=== PATIENT | female | born 1960 | race African-American/Black ===

== ENCOUNTER → 2016-12-06 | Outpatient (CLI) | payer OTHER ==
--- NOTE | 2016-12-06 08:48 | WOMENS IMAGING REPORT ---
EXAM DESCRIPTION: BILAT SCREENING MAMMO W/CAD COMPLETED DATE/TIME: 12/06/2016 8:28 am REASON FOR STUDY: SCREENING MAMMO Z12.31 ENCNTR SCREEN MAMMOGRAM FOR MALIGNANT NEOPLASM OF DMITRI COMPARISON: Multiple since 2008 TECHNIQUE: Standard craniocaudal and mediolateral oblique views of each breast recorded using digita l acquisition. LIMITATIONS: None. FINDINGS: Findings present which are benign by mammographic criteria. No suspicious masses, calcifi cations or architectural distortion. Pertinent benign findings: Benign 1.5 cm fibroadenoma medial right breast. Benign 6 mm nodule medial left breast. Read with the assistance of CAD. .[facility] - R2 Cenova Version 1.3 .[facility] Imaging - R2 Cenova Version 1.3 .[facility] Imaging - R2 Cenova Version 2.4 .[facility] - R2 Cenova Version 2.4 .[facility] - R2 Nuclear Plant Instrument Technician Version 9.2 Benign mammographic findings may include one or more of the following: Smooth masses, popcorn/rim/co arse calcifications, asymmetries, post-procedure changes, and lesions with long-standing stability. IMPRESSION: BENIGN MAMMOGRAPHIC FINDINGS. BIRADS 2 BREAST DENSITY: b. There are scattered areas of fibroglandular density. BIRAD: 2 BENIGN FINDING(S) RECOMMENDATION: ROUTINE SCREENING Please continue bilateral screening mammography in November 2017. Consider bilateral screening tomosyn thesis. COMMENT: The patient has been notified of the results by letter per SA requirements. Additional no tification policies are in place for contacting patient with suspicious or incomplete findings. Quality ID #[id number]: [employer] recommends an annual screening mammogram for women aged 40 years or over. This facility utilizes a reminder system to ensure that all patients receive reminder letters, and/or direct phone calls for appointments. This includes reminders for routine scr eening mammograms, diagnostic mammograms, or other Breast Imaging Interventions when appropriate. Th is patient will be placed in the appropriate reminder system. The [employer] (ACR) has developed recommendations for screening MRI of the breast s in certain patient populations, to be used in conjunction with mammography. Breast MRI surveillanc e may be appropriate for women with more than 20% lifetime risk of developing breast cancer as deter mined by genetic testing, significant family history of the disease, or history of mantle radiation f or Hodgkins Disease. ACR Practice Guidelines 2008. TECHNICAL DOCUMENTATION: FINDING NUMBER: (1) ASSESSMENT: (1) JOB ID: [id number] [employer]- All Rights Reserved
== END ==
LOC: WI 07:52
PROVIDERS: ATTEND Family Medicine
DX: Z12.31 Encounter for screening mammogram for malignant neoplasm of breast (principal)
CPT/HCPCS: 77067; G0202

== ENCOUNTER 2017-08-05 05:52 | Emergency (ER) | payer OTHER ==
[2017-08-05] MEDS ORDERED: NORMAL SALINE 1000 ML 1,000 ML IV ONE (07:46)
--- NOTE | 2017-08-05 08:16 | RADIOLOGY REPORT (SQ) ---
EXAM DESCRIPTION: CHEST 2 VIEWS COMPLETED DATE/TIME: 08/05/2017 7:57 am REASON FOR STUDY: cough COMPARISON: None. EXAM PARAMETERS: NUMBER OF VIEWS: two views TECHNIQUE: Digital Frontal and Lateral radiographic views of the chest acquired. RADIATION DOSE: NA LIMITATIONS: none FINDINGS: LUNGS AND PLEURA: No opacities, masses or pneumothorax. No pleural effusion. MEDIASTINUM AND HILAR STRUCTURES: No masses or contour abnormalities. HEART AND VASCULAR STRUCTURES: Heart normal size. No evidence for failure. BONES: No acute findings. HARDWARE: None in the chest. OTHER: No other significant finding. IMPRESSION: NO ACUTE RADIOGRAPHIC FINDING IN THE CHEST. TECHNICAL DOCUMENTATION: JOB ID: [id number] [employer]- All Rights Reserved Reading location - IP/workstation name: [email or web address]
--- NOTE | 2017-08-05 08:23 | ER Document Report ---
ED General - General Chief Complaint: Flu Symptoms Stated Complaint: FEVER,BODY ACHES Time Seen by Provider: 08/05/17 07:04 Mode of Arrival: Ambulatory Information source: Patient, Relative Notes: 57-year-old female with a history of hypothyroid presents with complaint of body aches. Patient states that for the last 10 days she has been experiencing intermittent fevers and body aches. She states just prior to arrival she had a fever of 100.7. T-max has been 101.7. Patient took and has been taking Tylenol for this. She denies any headache, ear pain, sore throat, cough, chest pain, shortness of breath, abdominal pain, back pain, dysuria, hematuria, vaginal discharge. Denies tobacco use, alcohol use, drug use. Patient was seen by her primary care physician and started on Bactrim. Patient is on day 4 of 7 at this time. Patient denies history of IV drug abuse, hepatitis. TRAVEL OUTSIDE OF THE [place] IN LAST 30 DAYS: No - HPI Onset: Other - 10 days prior to arrival Onset/Duration: Constant. denies: Worse Quality of pain: Achy Severity: Mild Associated symptoms: Fever. denies: Chest pain, Nonproductive cough, Diarrhea, Headache, Nausea, Vomiting, Shortness of breath, Weakness Exacerbated by: Denies Relieved by: Denies Similar symptoms previously: Yes Recently seen / treated by doctor: Yes - Dr. Cooper - Related Data Allergies/Adverse Reactions: No Known Allergies Allergy (Unverified 08/05/17 06:51) Past Medical History - General Information source: Patient - Social History Smoking Status: Never Smoker Chew tobacco use (# tins/day): No Frequency of alcohol use: Rare Drug Abuse: None Lives with: Spouse/Significant other Family History: Reviewed & Not Pertinent Patient has suicidal ideation: No Patient has homicidal ideation: No - Medical History Medical History: Other - hypo thyroid Renal/ Medical History: Denies: Hx Peritoneal Dialysis Review of Systems - Review of Systems Notes: She denies any headache, ear pain, sore throat, cough, chest pain, shortness of breath, abdominal pain, back pain, dysuria, hematuria, vaginal discharge. Denies tobacco use, alcohol use, drug use. Physical Exam - Vital signs Vitals: Temp Pulse Resp BP Pulse Ox 98.7 F 75 16 109/56 L 97 08/05/17 05:57 08/05/17 05:57 08/05/17 05:57 08/05/17 05:57 08/05/17 05:57 Interpretation: Normal. No: Tachycardic, Febrile - Notes Notes: PHYSICAL EXAMINATION: GENERAL: Well-appearing, well-nourished and in no acute distress. HEAD: Atraumatic, normocephalic. EYES: Pupils equal round and reactive to light, extraocular movements intact, conjunctiva are normal. ENT: Nares patent, oropharynx clear without exudates. Moist mucous membranes. NECK: Normal range of motion, supple without lymphadenopathy LUNGS: Breath sounds clear to auscultation bilaterally and equal. No wheezes rales or rhonchi. HEART: Regular rate and rhythm without murmurs ABDOMEN: Soft, nontender, nondistended abdomen. No guarding, no rebound. No masses appreciated. Female : deferred Musculoskeletal: Normal range of motion, no pitting or edema. No cyanosis. NEUROLOGICAL: Cranial nerves grossly intact. Normal speech, normal gait. Normal sensory, motor exams PSYCH: Normal mood, normal affect. SKIN: Warm, Dry, normal turgor, no rashes or lesions noted. - General General appearance: Appears well, Alert In distress: None Course - Re-evaluation Re-evalutation: Laboratory 08/05/17 08/05/17 08/05/17 08:33 08:33 08:33 WBC 2.0 L RBC 4.40 Hgb 12.6 Hct 36.8 MCV 84 MCH 28.6 MCHC 34.2 RDW 13.0 Plt Count 143 L Total Counted 100 Seg Neutrophils % Not Reportable Seg Neuts % (Manual) 56 Lymphocytes % Not Reportable Lymphocytes % (Manual) 38 Monocytes % Not Reportable Monocytes % (Manual) 4 Eosinophils % Not Reportable Eosinophils % (Manual) 0 Basophils % Not Reportable Basophils % (Manual) 2 Absolute Neutrophils Not Reportable Abs Neuts (Manual) 1.1 L Absolute Lymphocytes Not Reportable Abs Lymphs (Manual) 0.8 Absolute Monocytes Not Reportable Abs Monocytes (Manual) 0.1 Absolute Eosinophils Not Reportable Absolute Eos (Manual) 0.0 Absolute Basophils Not Reportable Abs Basophils (Manual) 0.0 Platelet Comment ADEQUATE RBC Morph Comment NORMO-CYTIC/CHROMIC Sodium 140.3 Potassium 4.7 Chloride 101 Carbon Dioxide 27 Anion Gap 12 BUN 22 H Creatinine 1.16 Est GFR ( Amer) 58 L Est GFR (Non-Af Amer) 48 L Glucose 99 Calcium 8.9 Total Bilirubin 0.3 Direct Bilirubin 0.3 Neonat Total Bilirubin Not Reportable Neonat Direct Bilirubin Not Reportable Neonat Indirect Bili Not Reportable AST 84 H ALT 58 H Alkaline Phosphatase 77 Total Protein 7.2 Albumin 3.8 Lipase 377.2 H Urine Color YELLOW Urine Appearance SLIGHTLY-CLOUDY Urine pH 5.0 Ur Specific [place] 1.019 Urine Protein NEGATIVE Urine Glucose (UA) NEGATIVE Urine Ketones NEGATIVE Urine Blood NEGATIVE Urine Nitrite NEGATIVE Urine Bilirubin NEGATIVE Urine Urobilinogen 2.0 H Ur Leukocyte Esterase MODERATE H Urine WBC (Auto) 19 Urine RBC (Auto) 4 U Hyaline Cast (Auto) 5 Urine Bacteria (Auto) 1+ Squamous Epi Cells Auto 4 Urine Mucus (Auto) FEW Urine Ascorbic Acid NEGATIVE Chest X-Ray 08/05/17 07:45 IMPRESSION: NO ACUTE RADIOGRAPHIC FINDING IN THE CHEST. 08/05/17 09:43 57-year-old female with a history of hypothyroid presents with complaint of body aches. Patient states that for the last 10 days she has been experiencing intermittent fevers and body aches. She states just prior to arrival she had a fever of 100.7. T-max has been 101.7. Patient took and has been taking Tylenol for this. Patient was seen by her primary care physician and started on Bactrim. Vital signs reviewed and stable upon arrival. Patient is in no acute distress. She does not appear toxic or dehydrated. Her only physical complaint is myalgias. Chest x-ray was obtained and showed no acute process. She received IV fluids, Toradol during her ED course. 08/05/17 10:22 Urinalysis is significant for urinary tract infection showing moderate leukoesterase and 19 WBCs. Patient has been on Bactrim for 4 days so we will change her antibiotic at this time. I did contact Dr. Cooper's office and was able to touch base with the nurse who reviewed previous labs that were taken 4 days ago. At that time patient did have a low white count, lower platelet count. Patient found to have mildly elevated LFTs as well as mildly elevated lipase without any abdominal symptoms, history of IV drug use or hepatitis. Patient continues to be stable throughout her ED course. Patient did receive IV fluids and Toradol. She states that the Toradol did help with her body aches. Patient was discharged home with recommendation to follow-up with Dr. Cooper in 2 days. 08/05/17 10:27 08/05/17 18:21 - Vital Signs Vital signs: Temp Pulse Resp BP Pulse Ox 99.5 F 69 14 106/62 99 08/05/17 10:34 08/05/17 10:34 08/05/17 10:34 08/05/17 10:34 08/05/17 10:34 - Laboratory Result Diagrams: 08/05/17 08:33 08/05/17 08:33 Laboratory results interpreted by me: 08/05/17 08/05/17 08/05/17 08:33 08:33 08:33 WBC 2.0 L Plt Count 143 L Abs Neuts (Manual) 1.1 L BUN 22 H Est GFR ( Amer) 58 L Est GFR (Non-Af Amer) 48 L AST 84 H ALT 58 H Lipase 377.2 H Urine Urobilinogen 2.0 H Ur Leukocyte Esterase MODERATE H - Diagnostic Test Radiology reviewed: Image reviewed, Reports reviewed Discharge - Discharge Clinical Impression: Body aches, Thrombocytopenia UTI (urinary tract infection) Qualifiers: Urinary tract infection type: site unspecified Hematuria presence: without hematuria Qualified Code(s): N39.0 - Urinary tract infection, site not specified Leukopenia Qualifiers: Leukopenia type: unspecified Qualified Code(s): D72.819 - Decreased white blood cell count, unspecified Disposition: HOME, SELF-CARE Instructions: Thrombocytopenia ([facility]), Urinary Tract Infection, Child ([facility]) Additional Instructions: Her lab work today revealed that you have a low white cell count as well as a low platelet count. When I spoke to your doctor the seems similar to the labs that were drawn earlier last week. You were also found to have mildly elevated liver enzymes and lipase. This is unclear why this is occurring especially since you have no abdominal pain. Follow up with your physician tomorrow for further care or return to the ED IMMEDIATELY if symptoms worsen or new concerns occur. If you cannot afford to follow up with your primary care physician a list of low cost clinics have been provided at the end of your discharge papers as well. Prescriptions: Ciprofloxacin HCl [Cipro 500 mg Tablet] 500 mg PO BID #10 tablet Ibuprofen [Motrin 600 Mg Tablet] 600 mg PO TID #15 tablet Referrals: NAHEED COOPER MD [Primary Care Provider] - 08/07/17
[2017-08-05 08:46] LABS: HEMATOCRIT 36.8 % (36.0-47.0); HEMOGLOBIN 12.6 g/dL (12.0-15.5); MEAN CORPUSCULAR HEMOGLOBIN 28.6 pg (27.0-33.4); MEAN CORPUSCULAR HGB CONC 34.2 g/dL (32.0-36.0); MEAN CORPUSCULAR VOLUME 84 fl (80-97); PLATELET COUNT 143 10^3/uL (150-450)
[2017-08-05 09:05] LABS: ALANINE AMINOTRANSFERASE 58 U/L (9-52); ALBUMIN 3.8 g/dL (3.5-5.0); ALKALINE PHOSPHATASE 77 U/L (38-126); ANION GAP 12 (5-19); ASPARTATE AMINO TRANSFERASE 84 U/L (14-36); BILIRUBIN,DIRECT 0.3 mg/dL (0.0-0.4); BILIRUBIN,TOTAL 0.3 mg/dL (0.2-1.3); BLOOD UREA NITROGEN 22 mg/dL (7-20); CALCIUM 8.9 mg/dL (8.4-10.2); CARBON DIOXIDE 27 mmol/L (22-30); CHLORIDE 101 mmol/L (98-107); GLUCOSE 99 mg/dL (75-110); LIPASE 377.2 U/L (23-300); POTASSIUM 4.7 mmol/L (3.6-5.0); SODIUM 140.3 mmol/L (137-145); TOTAL PROTEIN 7.2 g/dL (6.3-8.2)
[2017-08-05 09:27] LABS: APPEARANCE,URINE SLIGHTLY-CLOUDY; BILIRUBIN,URINE NEGATIVE (NEGATIVE); COLOR,URINE YELLOW; GLUCOSE, URINE NEGATIVE (NEGATIVE); KETONES,URINE NEGATIVE (NEGATIVE); LEUKOCYTE ESTERASE,URINE MODERATE (NEGATIVE); NITRITE,URINE NEGATIVE (NEGATIVE); PROTEIN,URINE NEGATIVE (NEGATIVE); URINE SPECIFIC GRAVITY 1.019
[2017-08-05 09:34] LABS: ABSOLUTE LYMPHOCYTES# (MANUAL) 0.8 10^3/uL (0.5-4.7); ABSOLUTE MONOCYTES # (MANUAL) 0.1 10^3/uL (0.1-1.4); ABSOLUTE NEUTROPHILS# (MANUAL) 1.1 10^3/uL (1.7-8.2); BASOPHILS % (MANUAL) 2 % (0-2); EOSINOPHILS % (MANUAL) 0 % (0-6); LYMPHOCYTES % (MANUAL) 38 % (13-45); MONOCYTES % (MANUAL) 4 % (3-13); RBC MORPHOLOGY COMMENT NORMO-CYTIC/CHROMIC; SEGMENTED NEUTROPHILS % (MAN) 56 % (42-78); TOTAL CELLS COUNTED 100
[2017-08-05 09:35] LABS: PLATELET COMMENT ADEQUATE
[2017-08-05] MEDS ORDERED: CIPROFLOXACIN HCL 500 MG TABLET PO ONE (10:29)
[2017-08-05 10:40] VITALS: BP 106/62
== END 2017-08-05 10:43 | disposition home or self-care (01) ==
LOC: ER 05:52
DX: N39.0 Urinary tract infection, site not specified (principal); D69.6 Thrombocytopenia, unspecified; R50.9 Fever, unspecified; M79.1 Myalgia
CPT/HCPCS: 99284; 96360; 36415; 83690; 85025; 80053; 81001; 71046; J7030

== ENCOUNTER 2017-08-12 02:55 | Emergency (ER) | payer OTHER ==
[2017-08-12] MEDS ORDERED: ONDANSETRON HCL INJ/PF 4 MG/2 ML SDV IV ONE (03:53)
[2017-08-12] MEDS ORDERED: NORMAL SALINE 1000 ML 1,000 ML IV ONE ×2 (03:53→05:21)
[2017-08-12 04:42] LABS: ABSOLUTE BASOPHILS # (AUTO) 0.1 10^3/uL (0.0-0.2); ABSOLUTE LYMPHOCYTES (AUTO) 2.2 10^3/uL (0.5-4.7); ABSOLUTE MONOCYTES (AUTO) 0.5 10^3/uL (0.1-1.4); ABSOLUTE NEUT (AUTO) 1.6 10^3/uL (1.7-8.2); BASOPHILS % (AUTO) 1.3 % (0-2); EOSINOPHILS % (AUTO) 0.3 % (0-6); HEMATOCRIT 38.3 % (36.0-47.0); HEMOGLOBIN 12.9 g/dL (12.0-15.5); LYMPHOCYTES % (AUTO) 50.1 % (13-45); MEAN CORPUSCULAR HEMOGLOBIN 28.6 pg (27.0-33.4); MEAN CORPUSCULAR HGB CONC 33.7 g/dL (32.0-36.0); MEAN CORPUSCULAR VOLUME 85 fl (80-97); MONOCYTES % (AUTO) 10.8 % (3-13); PLATELET COUNT 228 10^3/uL (150-450); RED BLOOD COUNT 4.51 10^6/uL (3.72-5.28); RED CELL DISTRIBUTION WIDTH 13.4 % (11.5-14.0); SEGMENTED NEUTROPHILS % (AUTO) 37.5 % (42-78); TOTAL CELLS COUNTED % (AUTO) 100 %; WHITE BLOOD COUNT 4.3 10^3/uL (4.0-10.5)
[2017-08-12 04:51] LABS: ALANINE AMINOTRANSFERASE 106 U/L (9-52); ALBUMIN 4.6 g/dL (3.5-5.0); ALKALINE PHOSPHATASE 92 U/L (38-126); ASPARTATE AMINO TRANSFERASE 99 U/L (14-36); BILIRUBIN,DIRECT 0.4 mg/dL (0.0-0.4); BILIRUBIN,TOTAL 0.7 mg/dL (0.2-1.3); BLOOD UREA NITROGEN 31 mg/dL (7-20); CALCIUM 9.6 mg/dL (8.4-10.2); CARBON DIOXIDE 27 mmol/L (22-30); CHLORIDE 113 mmol/L (98-107); GLUCOSE 113 mg/dL (75-110); LIPASE 182.1 U/L (23-300); TOTAL PROTEIN 8.8 g/dL (6.3-8.2)
[2017-08-12 04:56] LABS: ANION GAP 13 (5-19); SODIUM 153.1 mmol/L (137-145)
--- NOTE | 2017-08-12 05:44 | ER Document Report ---
ED General - General Chief Complaint: Abdominal Pain Stated Complaint: STOMACH PAIN Time Seen by Provider: 08/12/17 03:28 Mode of Arrival: Ambulatory Information source: Patient Notes: Patient is a 57-year-old female who presents to the emergency department with complaints of generalized abdominal pain, weakness and nausea. Patient states that she was seen here on 423 and diagnosed with UTI. Patient reports that she completed her course of Cipro and all of her UTI symptoms have resolved as well as her fever has resolved. However patient states that she continues to have weakness, generalized abdominal pain and states that her nausea is so bad she is barely drinking at all. Patient states that she last vomited 2 days ago. Patient reports past medical history of thyroid cancer in 2008 with subsequent total thyroidectomy. Patient also states that she used to have borderline diabetes but it is resolved. TRAVEL OUTSIDE OF THE [place] IN LAST 30 DAYS: No - Related Data Allergies/Adverse Reactions: No Known Allergies Allergy (Unverified 08/05/17 06:51) Past Medical History - General Information source: Patient - Social History Smoking Status: Never Smoker Family History: Reviewed & Not Pertinent Patient has suicidal ideation: No Patient has homicidal ideation: No Renal/ Medical History: Denies: Hx Peritoneal Dialysis Musculoskeltal Medical History: Reports None Skin Medical History: Reports None Psychiatric Medical History: Reports: None Traumatic Medical History: Reports: None Infectious Medical History: Reports: None Past Surgical History: Reports: Hx Thyroid Surgery - Thyroid cancer - Immunizations Immunizations up to date: Yes Hx Diphtheria, Pertussis, Tetanus Vaccination: Yes Review of Systems - Review of Systems Constitutional: Weakness EENT: No symptoms reported Cardiovascular: No symptoms reported Respiratory: No symptoms reported Gastrointestinal: Abdominal pain - Mild generalized abdominal pain, Nausea Genitourinary: No symptoms reported Female Genitourinary: No symptoms reported Musculoskeletal: No symptoms reported Skin: No symptoms reported Hematologic/Lymphatic: No symptoms reported Neurological/Psychological: No symptoms reported Physical Exam - Vital signs Vitals: Temp Pulse Resp BP Pulse Ox 98.0 F 55 L 20 138/75 H 97 08/12/17 03:03 08/12/17 03:03 08/12/17 03:03 08/12/17 03:03 08/12/17 03:03 - Notes Notes: PHYSICAL EXAMINATION: GENERAL: Weak-appearing, well-nourished and in no acute distress. HEAD: Atraumatic, normocephalic. EYES: Pupils equal round and reactive to light, extraocular movements intact, conjunctiva are normal. ENT: Nares patent, oropharynx clear without exudates. Moist mucous membranes. NECK: Normal range of motion, supple without lymphadenopathy LUNGS: Breath sounds clear to auscultation bilaterally and equal. No wheezes rales or rhonchi. HEART: Regular rate and rhythm without murmurs ABDOMEN: Soft, mildly tender, nondistended abdomen. No guarding, no rebound. No masses appreciated. Female : deferred Musculoskeletal: Normal range of motion, no pitting or edema. No cyanosis. NEUROLOGICAL: Cranial nerves grossly intact. Normal speech, normal gait. Normal sensory, motor exams PSYCH: Normal mood, normal affect. SKIN: Warm, Dry, normal turgor, no rashes or lesions noted. Course - Re-evaluation Re-evalutation: Patient presents with complaints of weakness, mild generalized abdominal pain and nausea. Patient reports that all of her urinary symptoms as well as her fever has resolved. Patient states that she has completed her course of Cipro that was provided on the . Will run serial labs and provide IV hydration as well as IV antiemetics. On reassessment patient states that she is feeling better, will give additional liter of fluid and reevaluate patient. Patient states that all of her nausea has resolved at this time. Patient's labs are improved today in comparison with her visit on the . Consulted with Dr. Rodriguez who recommends to rehydrate patient and provide nausea control. Patient has not had 2 L of IV fluids, patient states that now she feels she will be able to provide a urine sample. Patient reports that she is feeling a little better after the IV fluids and IV nausea medications and would like to be discharged home pending upon the results of her urinalysis. Urinalysis has no signs of infection and is unremarkable. Patient continues to state that she is feeling much better. Patient already has an appointment set up for 8 AM tomorrow with her primary care provider, Dr. Cooper. Patient's understands return precautions such as fever, dizziness, increased weakness or syncope. Patient is tolerating p.o. fluids. Patient will increase her fluid intake over the day and agrees to return with the above precautions. - Vital Signs Vital signs: Temp Pulse Resp BP Pulse Ox 98.0 F 55 L 16 141/81 H 100 08/12/17 03:03 08/12/17 03:03 08/12/17 06:01 08/12/17 06:00 08/12/17 06:01 - Laboratory Result Diagrams: 08/12/17 04:18 08/12/17 04:18 Laboratory results interpreted by me: 08/12/17 08/12/17 08/12/17 04:18 04:18 06:43 Seg Neutrophils % 37.5 L Lymphocytes % 50.1 H Absolute Neutrophils 1.6 L Sodium 153.1 H Chloride 113 H BUN 31 H Creatinine 1.47 H Est GFR ( Amer) 44 L Est GFR (Non-Af Amer) 37 L Glucose 113 H AST 99 H ALT 106 H Total Protein 8.8 H Urine Blood SMALL H Ur Leukocyte Esterase TRACE H Discharge - Discharge Clinical Impression: Weakness, Dehydration Condition: Stable Disposition: HOME, SELF-CARE Additional Instructions: Dehydration Dehydration can result from vomiting or diarrhea, fever, or decreased intake of fluids. If severe, hospitalization and intravenous fluids may be required. Most cases are treated at home with fluids by mouth. For the next 24 hours, drink lots of clear fluids. In mild cases, this can be soda pop or sports drinks. For more severe dehydration, the doctor may recommend special fluids such as Pedialyte or Lytren. Try to get three liters ( 3 quarts) of fluid per day. If vomiting occurs, continue to drink the fluids frequently (every 15 to 20 minutes), but in small amounts (one or two ounces). Depending on the type of dehydration, the doctor may prescribe antinausea medicine or potassium replacements. Call the doctor or return for re-examination if you become progressively weak, vomit repeatedly, or have other new symptoms. Intravenous (IV) Fluids As part of your care today, you received intravenous (IV) fluids. IV fluids are administered to patients who are dehydrated or to those who have certain chemical (electrolyte) abnormalities that need correcting. Please take Zofran as needed for nausea. Please be sure to increase her fluid intake. Please make sure that you keep your follow-up appointment for tomorrow morning. Return to the emergency department if you develop worsening weakness, dizziness, fever, passout or have any other symptoms that is concerning to you. Prescriptions: Ondansetron [Zofran Odt 4 mg Tablet] 1 - 2 tab PO Q4H PRN #15 tab.rapdis PRN Reason: For Nausea/Vomiting Referrals: NAHEED COOPER MD [ACTIVE STAFF] - Follow up as needed
[2017-08-12 07:02] LABS: APPEARANCE,URINE SLIGHTLY-CLOUDY; BILIRUBIN,URINE NEGATIVE (NEGATIVE); COLOR,URINE YELLOW; GLUCOSE, URINE NEGATIVE (NEGATIVE); KETONES,URINE NEGATIVE (NEGATIVE); LEUKOCYTE ESTERASE,URINE TRACE (NEGATIVE); NITRITE,URINE NEGATIVE (NEGATIVE); PROTEIN,URINE NEGATIVE (NEGATIVE); UROBILINOGEN,URINE NEGATIVE mg/dL (<2.0)
[2017-08-12] MEDS ORDERED: ONDANSETRON ODT 4 MG TAB (6 TAB/ER DISP) PO PRN (07:19)
[2017-08-12 07:24] VITALS: BP 138/78
[2017-08-13 10:38] LABS: HEPATITIS A AB IGM Negative (Negative); HEPATITIS B CORE AB IGM Negative (Negative); HEPATITS B SURFACE ANTIGEN Negative (Negative)
[2017-08-13 10:58] LABS: HEPATITIS C VIRUS ANTIBODY <0.1 s/co ratio (0.0-0.9)
== END 2017-08-12 07:32 | disposition home or self-care (01) ==
LOC: ER 02:55
DX: E86.0 Dehydration (principal); R53.1 Weakness; R10.84 Generalized abdominal pain; R11.0 Nausea; Z85.850 Personal history of malignant neoplasm of thyroid
CPT/HCPCS: 99284; 96361; 96374; 36415; 83690; 85025; 86308; 80053; 81001; 80074; J2405; J7030

== ENCOUNTER → 2017-12-06 | Outpatient (CLI) | payer OTHER ==
--- NOTE | 2017-12-10 11:40 | WOMENS IMAGING REPORT ---
EXAM DESCRIPTION: BILAT SCREENING MAMMO W/CAD COMPLETED DATE/TIME: 12/10/2017 9:45 am REASON FOR STUDY: ROUTINE BILATERAL SCREENING;Z12.31 Z12.31 ENCNTR SCREEN MAMMOGRAM FOR MALIGNANT N EOPLASM OF DMITRI COMPARISON: 12/06/2016 and 12/05/2015 TECHNIQUE: Standard craniocaudal and mediolateral oblique views of each breast recorded using digita l acquisition. LIMITATIONS: None. FINDINGS: Findings present which are benign by mammographic criteria. No suspicious masses, calcifi cations or architectural distortion. Read with the assistance of CAD. .[facility] - R2 Cenova Version 1.3 .[facility] Imaging - R2 Cenova Version 1.3 .[facility] Imaging - R2 Cenova Version 2.4 .[facility] - R2 Cenova Version 2.4 .[facility] - R2 Product Mgr Version 9.2 Benign mammographic findings may include one or more of the following: Smooth masses, popcorn/rim/co arse calcifications, asymmetries, post-procedure changes, and lesions with long-standing stability. IMPRESSION: BENIGN MAMMOGRAPHIC FINDINGS. BIRADS 2 BREAST DENSITY: b. There are scattered areas of fibroglandular density. BIRAD: 2 BENIGN FINDING(S) RECOMMENDATION: ROUTINE SCREENING COMMENT: The patient has been notified of the results by letter per SA requirements. Additional no tification policies are in place for contacting patient with suspicious or incomplete findings. Quality ID #[id number]: [employer] recommends an annual screening mammogram for women aged 40 years or over. This facility utilizes a reminder system to ensure that all patients receive reminder letters, and/or direct phone calls for appointments. This includes reminders for routine scr eening mammograms, diagnostic mammograms, or other Breast Imaging Interventions when appropriate. Th is patient will be placed in the appropriate reminder system. [employer] (ACR) has developed recommendations for screening MRI of the breast s in certain patient populations, to be used in conjunction with mammography. Breast MRI surveillanc e may be appropriate for women with more than 20% lifetime risk of developing breast cancer as deter mined by genetic testing, significant family history of the disease, or history of mantle radiation f or Hodgkins Disease. ACR Practice Guidelines 2008. TECHNICAL DOCUMENTATION: FINDING NUMBER: (1) ASSESSMENT: (1) JOB ID: [id number] [employer]- All Rights Reserved Reading location - IP/workstation name: [email or web address]
== END ==
LOC: WI 13:19
PROVIDERS: ATTEND Family Medicine
DX: Z12.31 Encounter for screening mammogram for malignant neoplasm of breast (principal)
CPT/HCPCS: 77067

== ENCOUNTER → 2018-12-09 | Outpatient (CLI) | payer OTHER ==
--- NOTE | 2018-12-09 14:45 | WOMENS IMAGING REPORT ---
EXAM DESCRIPTION: BILAT SCREENING MAMMO W/CAD COMPLETED DATE/TIME: 12/09/2018 1:29 pm REASON FOR STUDY: Z12.31 SCREENING MAMMO Z12.31 ENCNTR SCREEN MAMMOGRAM FOR MALIGNANT NEOPLASM OF B RE COMPARISON: Digital tomosynthesis bilateral screening mammograms dated 12/06/2017, 12/06/2016 and digi alma bilateral screening mammogram dated 12/05/2015. EXAM PARAMETERS: Standard craniocaudal and mediolateral oblique views of each breast recorded using digital acquisition and breast tomosynthesis. Read with the assistance of CAD. .[facility] - [employer] [facility] Version 9.2 LIMITATIONS: None. FINDINGS: Findings present which are benign by mammographic criteria. No suspicious masses, calcific ations or architectural distortion. Pertinent benign findings: Stable nodule with associated calcifications in the mid medial right breas t. Small stable nodule in the medial left breast. Benign mammographic findings may include one or more of the following: Smooth masses, popcorn/rim/coa rse calcifications, asymmetries, post-procedure changes, and lesions with long-standing stability. IMPRESSION: BENIGN MAMMOGRAPHIC FINDINGS. BIRADS 2 BREAST DENSITY: b. There are scattered areas of fibroglandular density. BIRAD: ASSESSMENT: 2 BENIGN FINDING(S) RECOMMENDATION: 1. ROUTINE SCREENING COMMENT: The patient has been notified of the results by letter per MQSA requirements. Additional no tification policies are in place for contacting patient with suspicious or incomplete findings. Quality ID #[id number]: The [employer] recommends an annual screening mammogram for women aged 40 years or over. This facility utilizes a reminder system to ensure that all patients receive reminder letters, and/or direct phone calls for appointments. This includes reminders for routine scr eening mammograms, diagnostic mammograms, or other Breast Imaging Interventions when appropriate. Th is patient will be placed in the appropriate reminder system. TECHNICAL DOCUMENTATION: FINDING NUMBER: (1) ASSESSMENT: (1) JOB ID: [id number]- All Rights Reserved Reading location - IP/workstation name: [email or web address]
== END ==
LOC: WI 12:55
PROVIDERS: ATTEND Nurse Practitioner Family
DX: Z12.31 Encounter for screening mammogram for malignant neoplasm of breast (principal)
CPT/HCPCS: 77067

== ENCOUNTER → 2019-06-29 | Outpatient (CLI) | payer OTHER ==
--- NOTE | 2019-06-29 12:01 | RADIOLOGY REPORT (SQ) ---
EXAM DESCRIPTION: C SP 4 OR 5 VIEWS COMPLETED DATE/TIME: 06/29/2019 11:53 am REASON FOR STUDY: ACUTE PAIN IN RIGHT SHOULDER WITH NECK PAIN M25.511 PAIN IN RIGHT SHOULDER M54.2 CERVICALGIA COMPARISON: None. NUMBER OF VIEWS: Five views. TECHNIQUE: AP, lateral, obliques and odontoid radiographic images acquired of the cervical spine. LIMITATIONS: None. FINDINGS: MINERALIZATION: Normal. ALIGNMENT: Anatomic. VERTEBRAE: Vertebral bodies of normal height. DISCS: Disc space narrowing at C3-4, C4-5, C5-C6 and C6-C7. FORAMINA: No osteophytes or foraminal narrowing. LATERAL AND POSTERIOR ELEMENTS: Facets, lateral masses and spinous processes without significant find ings. HARDWARE: None in the spine. SOFT TISSUES: No masses or calcifications. Lung apices clear. OTHER: No other significant finding. IMPRESSION: Mild multilevel disc space narrowing. No acute findings. TECHNICAL DOCUMENTATION: JOB ID: [id number] 2010 [employer]- All Rights Reserved Reading location - IP/workstation name: [email or web address]
--- NOTE | 2019-06-29 12:02 | RADIOLOGY REPORT (SQ) ---
EXAM DESCRIPTION: SHOULDER RIGHT 2 OR MORE VIEWS COMPLETED DATE/TIME: 06/29/2019 11:53 am REASON FOR STUDY: ACUTE PAIN IN RIGHT SHOULDER WITH NECK PAIN M25.511 PAIN IN RIGHT SHOULDER M54.2 CERVICALGIA COMPARISON: 01/15/2016 NUMBER OF VIEWS: Three views. TECHNIQUE: Internal rotation, external rotation, and Y view images acquired of the right shoulder. LIMITATIONS: None. FINDINGS: MINERALIZATION: Normal. BONES: No acute fracture. No worrisome bone lesions. JOINTS: No dislocation. VISUALIZED LUNGS AND RIBS: No pneumothorax. No rib fracture. SOFT TISSUES: No radiopaque foreign body. OTHER: No other significant finding. IMPRESSION: NEGATIVE STUDY OF THE RIGHT SHOULDER. NO RADIOGRAPHIC EVIDENCE OF ACUTE INJURY. TECHNICAL DOCUMENTATION: JOB ID: [id number] 2010 [employer]- All Rights Reserved Reading location - IP/workstation name: [email or web address]
== END ==
LOC: OD 11:23
PROVIDERS: ATTEND Nurse Practitioner Family
DX: M54.2 Cervicalgia (principal); M25.511 Pain in right shoulder
CPT/HCPCS: 72050

== ENCOUNTER 2019-07-08 02:53 | Emergency (ER) | payer OTHER ==
[2019-07-08 03:05] VITALS: BP 138/80
[2019-07-08] MEDS ORDERED: DIAZEPAM 5 MG TABLET PO ONE (03:48)
[2019-07-08] MEDS ORDERED: IBUPROFEN 600 MG TABLET PO ONE (03:48)
--- NOTE | 2019-07-08 03:52 | ER Document Report ---
HPI - HPI Time Seen by Provider: 07/08/19 03:32 Pain Level: 4 Context: Patient is a 59-year-old female that comes emergency department for chief complaint of right upper back and right shoulder pain. She states that she has been dealing with this for about a week, she states intermittently she will feel like it seizes up and spasms and causes sharp pain. She denies specific injury but she does go to the gym daily. She had a negative x-ray of the right shoulder with her primary care a couple of days ago. She states she was prescribed cyclobenzaprine and it makes her sleep but is not helping with her symptoms. She takes Synthroid, she takes no other medications otherwise. She states she did put heat on the area and it significantly helped but then it started spasming later in the night. She denies focal numbness or weakness, chest pain, shortness of breath, fever, vomiting, or any other complaints. - REPRODUCTIVE Reproductive: DENIES: : - MUSCULOSKELETAL Musculoskeletal: REPORTS: Extremity pain - rt shoulder Past Medical History - General Information source: Patient - Social History Smoking Status: Never Smoker Chew tobacco use (# tins/day): No Frequency of alcohol use: None Drug Abuse: None Lives with: Family Family History: Reviewed & Not Pertinent Patient has suicidal ideation: No Patient has homicidal ideation: No Renal/ Medical History: Denies: Hx Peritoneal Dialysis Past Surgical History: Reports: Hx Thyroid Surgery - Thyroid cancer - Immunizations Immunizations up to date: Yes Hx Diphtheria, Pertussis, Tetanus Vaccination: Yes Vertical Provider Document - CONSTITUTIONAL General Appearance: WD/WN. negative: No Apparent Distress - Patient does not appear to be in distress unless she moves, when she moves she has obvious discomfort - INFECTION CONTROL TRAVEL OUTSIDE OF THE [place] IN LAST 30 DAYS: No - HEENT HEENT: Atraumatic, Normocephalic - NECK Neck: Normal Inspection - RESPIRATORY Respiratory: Breath Sounds Normal, No Respiratory Distress, Chest Non-Tender - CARDIOVASCULAR Cardiovascular: Regular Rate, Regular Rhythm - GI/ABDOMEN Gastrointestinal: Abdomen Soft, Abdomen Non-Tender. negative: Abdomen Tender - BACK Back: negative: Normal Inspection - Rigid muscle fibers over the right trapezius muscle and extending up into the right paracervical musculature. Right arm/shoulder range of motion is intact and right arm exam is normal, normal cleat blanker, normal distal neurovascular exam. Of the spine no midline tenderness, no saddle anesthesia, no signs of trauma. Normal extremities otherwise including normal strength, distal neurovascular exam, range of motion - MUSCULOSKELETAL/EXTREMETIES Musculoskeletal/Extremeties: MAEW, FROM, Non-Tender - NEURO Level of Consciousness: Awake, Alert, Appropriate Motor/Sensory: No Motor Deficit, No Sensory Deficit - DERM Integumentary: Warm, Dry, No Rash Course - Re-evaluation Re-evalutation: Patient's exam is very specific for muscular spasm, this is very easily found and is limiting the patient's mobility. Patient has no chest pain, shortness of breath, or concerning findings otherwise. She has no neurovascular deficits. Discussed options, treatment, expectations, follow-up, and return precautions with patient in detail. She states appreciation and agreement. Stable at time of discharge. - Vital Signs Vital signs: Temp Pulse Resp BP Pulse Ox 97.8 F 73 16 138/80 H 100 07/08/19 03:05 07/08/19 03:05 07/08/19 03:05 07/08/19 03:05 07/08/19 03:05 Discharge - Discharge Clinical Impression: Upper back pain on right side, Muscle spasm Right shoulder pain Qualifiers: Chronicity: acute Qualified Code(s): M25.511 - Pain in right shoulder Condition: Stable Disposition: HOME, SELF-CARE Additional Instructions: Your evaluation is consistent with a muscular spasm of the paracervical and trapezius muscles. I recommend heat to the area, gentle massage and stretches, the anti-inflammatory, and the diazepam as a muscle relaxer. Symptoms should gradually resolve. Avoid lifting and twisting. Follow-up with primary care for additional management. Return for any concerning symptoms including severe worsening pain, developing numbness, difficulty breathing, spiking fever, or any other concerning symptoms. Prescriptions: Naproxen 500 mg PO BID PRN #14 tablet PRN Reason: Diazepam [Valium 5 mg Tablet] 1 - 2 tab PO TID PRN #15 tablet PRN Reason: Referrals: MARY ANN EMERSON FNP [Primary Care Provider] - Follow up as needed
== END 2019-07-08 03:55 | disposition home or self-care (01) ==
LOC: ER 02:53
DX: M62.838 Other muscle spasm (principal); M25.511 Pain in right shoulder; M54.9 Dorsalgia, unspecified; Z79.899 Other long term (current) drug therapy
CPT/HCPCS: 99283

== ENCOUNTER → 2019-12-14 | Outpatient (CLI) | payer OTHER ==
--- NOTE | 2019-12-14 08:38 | WOMENS IMAGING REPORT ---
EXAM DESCRIPTION: BILAT SCREENING MAMMO W/CAD IMAGES COMPLETED DATE/TIME: 12/14/2019 8:20 am REASON FOR STUDY: Z12.31 ENCNTR SCREEN MAMMOGRAM FOR MALIGNANT NEOPLASM OF BREAST Z12.31 ENCNTR SCR EEN MAMMOGRAM FOR MALIGNANT NEOPLASM OF DMITRI COMPARISON: 2011 and subsequent. EXAM PARAMETERS: Standard craniocaudal and mediolateral oblique views of each breast recorded using digital acquisition. Read with the assistance of CAD. .[facility] - [employer] Version 9.2 LIMITATIONS: None. FINDINGS: Findings present which are benign by mammographic criteria. No suspicious masses, calcifi cations or architectural distortion. Pertinent benign findings: Chronic mass in the medial right breast. 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 Benign mammographic findings may include one or more of the following: Smooth masses, popcorn/rim/co arse calcifications, asymmetries, post-procedure changes, and lesions with long-standing stability. IMPRESSION: BENIGN MAMMOGRAPHIC FINDINGS. BIRADS 2 BREAST DENSITY: b. There are scattered areas of fibroglandular density. BIRAD: ASSESSMENT: 2 BENIGN FINDING(S) RECOMMENDATION: ROUTINE SCREENING COMMENT: The patient has been notified of the results by letter per MQSA requirements. Additional no tification policies are in place for contacting patient with suspicious or incomplete findings. Quality ID #[id number]: The [employer] recommends an annual screening mammogram for women aged 40 years or over. This facility utilizes a reminder system to ensure that all patients receive reminder letters, and/or direct phone calls for appointments. This includes reminders for routine scr eening mammograms, diagnostic mammograms, or other Breast Imaging Interventions when appropriate. Th is patient will be placed in the appropriate reminder system. TECHNICAL DOCUMENTATION: FINDING NUMBER: (1) ASSESSMENT: (1) JOB ID: [id number] 2010 [employer]- All Rights Reserved Reading location - IP/workstation name: [email or web address]
== END ==
LOC: WI 07:59
PROVIDERS: ATTEND Nurse Practitioner Family
DX: Z12.31 Encounter for screening mammogram for malignant neoplasm of breast (principal)
CPT/HCPCS: 77067